=== PATIENT | female | born 1985 | race Caucasian/White ===

== ENCOUNTER 2017-06-29 17:37 | Emergency (ER) | payer OTHER ==
[~2017-06-29] VITALS: Ht 167.6 cm; Wt 72.6 kg
[2017-06-29] MEDS ORDERED: TYLENOL EXTRA500 MG PO (18:09)
== END 2017-06-29 22:09 | disposition home or self-care (01) ==
LOC: ER 17:37
DX: R10.31 Right lower quadrant pain (principal); K76.0 Fatty (change of) liver, not elsewhere classified